=== PATIENT | female | born 1955 | race Caucasian/White ===

== ENCOUNTER 2020-07-10 15:07 | Emergency (ER) | payer MEDICAID, OTHER, SELFPAY ==
[2020-07-10] VITALS (7 sets, daily range): BP systolic 116–157; BP diastolic 58–75; PULSE 87–97; RESP 18–20; TEMP 37.6; O2SAT 94–99
--- NOTE | ~2020-07-10 | CT_ITS ---
EXAMINATION: CTA chest PE protocol DATE: 07/10/2020 16:38 INDICATION: Chest pain. Elevated d-dimer. TECHNIQUE: Computed tomography (CT) pulmonary angiogram of the chest was performed with 100 mL Omnipa que-350 intravenous contrast. Additional 3D reconstructions utilizing coronal maximum intensity proje ction (MIP) were performed. Automated exposure control and iterative reconstruction technique were em ployed. The dose-length product was 384.39 mGy-cm. COMPARISON: None FINDINGS: Excellent contrast opacification of the pulmonary arteries. There is moderate streak artifact from de nse contrast in the duplicated left sided superior vena cava and right atrium. Mild scattered respira tory motion artifact. Node definitive pulmonary embolism. There are multiple bilateral patchy groundg lass opacities throughout both lungs suspicious for pneumonia particularly COVID pneumonia. No pleura l effusion. Heart size is normal. No pericardial effusion. Thoracic aorta is normal in caliber with n o dissection. No pathologically enlarged thoracic lymphadenopathy. Visualized upper abdomen is unrema rkable. There are bridging osteophytes at multiple levels in the spine, consistent with diffuse idiop athic skeletal hyperostosis (DISH). IMPRESSION: 1. No pulmonary embolism. 2. Multiple scattered patchy airspace opacities throughout both lungs concerning for pneumonia partic ularly COVID pneumonia. 3. 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 Reviewed, dictated and finalized at location A. IMPRESSION: 1. No pulmonary embolism. 2. Multiple scattered patchy airspace opacities throughout both lungs concernin g for pneumonia particularly COVID pneumonia. 3. 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
--- NOTE | ~2020-07-10 | XR_ITS ---
EXAMINATION: XR chest 1V portable DATE: 07/10/2020 16:18 INDICATION: One week of cough and weakness TECHNIQUE: frontal view of the chest was obtained. COMPARISON: None FINDINGS: Minimal streaky left basilar atelectasis. No pulmonary edema, pleural effusion or pneumothorax. The c ardiomediastinal silhouette is normal. Moderate thoracic spondylosis. IMPRESSION: 1. Minimal left basilar atelectasis. Reviewed, dictated and finalized at location A.
--- NOTE | 2020-07-10 15:33 | ECG_ITS ---
Measurements Intervals [place] Rate: 89 P: -6 VT: 137 QRS: 48 QRSD: 82 T: 68 QT: 339 QTc: 415 Interpretive Statements SINUS RHYTHM BORDERLINE R WAVE PROGRESSION, ANTERIOR LEADS BASELINE ARTIFACT- II, III BORDERLINE ECG Electronically Signed On 07-10-2020 17:15:24 CDT by Tree Johnson D.O.
--- NOTE | 2020-07-10 15:48 | ED.URI ---
HPI - URI/Sore Throat General Chief Complaint: Upper Respiratory Infection Stated Complaint: cough x 1 week Time Seen by Provider: 07/10/20 15:11 Source: patient, RN notes reviewed and old records reviewed Mode of arrival: ambulatory Limitations: no limitations History of Present Illness HPI Narrative: This is a 64 year old female who presents for evaluation of weakness and cough for 1 week. She developed flu like symptoms 1 week ago. She reports a family member had flu symptoms but they were able to get over it in a couple days. She reports general fatigue and weakness. She states she had to call EMS on Sunday because she felt like she was going to pass out. She declined transportation to ER after EMS performed an EKG. She reports she only has upper chest pain if she coughs. She denies sob, vomiting, abdominal pain. She reports nausea and diarrhea. Her last episode of diarrhea was yesterday. Denies heart disease. Related Data Home Medications Medication Instructions Recorded Confirmed levothyroxine 125 mcg PO DAILY 07/10/20 07/10/20 sitagliptin [Januvia] 300 mg PO DAILY 07/10/20 07/10/20 Allergies Allergy/AdvReac Type Severity Reaction Status Date / Time Sulfa (Sulfonamide AdvReac Unknown Other Verified 07/10/20 15:16 Antibiotics) Review of Systems Review of Systems: All systems reviewed & are unremarkable except as noted in HPI and below Constitutional: Constitutional: Denies chills, Reports fatigue, Denies fever(s) and Reports weakness Cardiovascular: Cardiovascular: Denies rapid heart rate Respiratory: Respiratory: Reports cough and Denies dyspnea Gastrointestinal: Gastrointestinal: Denies abdominal pain, Reports diarrhea, Reports nausea and Denies vomiting Neurologic: Reports dizziness and Denies headache(s) Endocrine: Endocrine: Reports fatigue and Reports polydipsia [facility] Past Medical History Medical History (Updated 07/12/20 @ 11:01 by Daisy Frost MD) Diabetes mellitus Hypothyroid Surgical History Surgical History (Updated 07/10/20 @ 15:51 by Daisy Frost MD) H/O section Social History Social History (Updated 07/10/20 @ 15:51 by Daisy Frost MD) Smoking status: Never smoker Exam Const: General: no acute distress and alert Orientation/consciousness: patient oriented x3 HENMT: Head: normocephalic and atraumatic Face and sinus: face symmetric Throat: posterior oropharynx normal, tonsils normal and uvula midline Eyes: Pupils: Equal, round and reactive pupils present EOM: EOMs intact bilaterally Chest: Chest palpation & inspection: normal inspection of the chest Resp: Effort & Inspection: normal respiratory effort and no retractions Auscultation: clear to auscultation bilaterally Cardio: Rate: regular rate Rhythm: regular rhythm Heart sounds: Murmur heart sound present systolic harsh GI: GI Palp: Yes Soft to palpation, No Tenderness to palpation present (GI) and No Guarding due to palpation present (GI) Auscultation: normal bowel sounds Neuro: General: patient oriented x3, moves all extremities, no focal motor deficits and CN's II-XI intact bilaterally Cranial nerves: Yes Nystagmus not present Speech: normal speech Extrem: General: normal to inspection Psych: Mental Status: mental status grossly normal Affect: normal affect Course Reevaluation(s) Reevaluation #1: Patient is currently being hydrated. It appears patient likely has covid. She has been swabbed. She has been given dose of rocephin. I discussed with patient discharge plan. She has no oxygen requirement and vitals are stable. Her oxygen saturation maintained at 95% during ambulation to bathroom. I told her to obtain pulse oximeter at home to monitor for saturation below 90%. She understands quarantine. Date: 07/10/20 Time: 19:09 Vital Signs Vital signs: Vital Signs Temperature 99.7 F H 07/10/20 15:11 Pulse Rate 91 07/10/20 15:11 Respiratory
[2020-07-10 15:50] LABS: Basophils Percent Auto 0.2 % (0.2-1.2); Eosinophils Percent Auto 0.2 % (0-4.4); Hematocrit 42.6 % (37.0-47.0); Hemoglobin 13.9 g/dL (12.0-15.0); Immature Granulocyte Absolute 0.02 K/mm3 (0.00-0.031); Immature Granulocyte Percent A 0.5 % (0-0.5); Lymphocytes Absolute Auto 1.31 K/mm3 (0.9-3.2); Lymphocytes Percent Auto 31.3 % (18.3-44.2); Mean Corpuscular HGB Conc 32.6 g/dl (32-36); Mean Corpuscular Hemoglobin 29.3 pg (26-34); Mean Corpuscular Volume 89.9 fl (80-100); Monocytes Absolute Auto 0.4 K/mm3 (0.1-0.6); Monocytes Percent Auto 9.8 % (2.6-8.5); Neutrophils Absolute Auto 2.4 K/mm3 (1.3-6.7); Platelet Count Result 173 k/mm3 (150-375); Red Blood Count 4.74 M/mm3 (4.2-5.4); Red Cell Distribution Width 12.5 % (11.5-14.5); White Blood Count 4.2 K/mm3 (4.5-10.0)
[2020-07-10 16:00] LABS: Alanine Aminotransferase 40 U/L (4-35); Albumin Level 3.9 g/dL (3.5-5.1); Alkaline Phosphatase 70 U/L (38-126); Anion Gap 7 mmol/L (8-16); Aspartate Amino Transferase 56 U/L (14-36); Bilirubin,Total 0.4 mg/dL (0.2-1.3); Blood Urea Nitrogen 5 mg/dL (7-17); Calcium 8.6 mg/dL (8.4-10.2); Carbon Dioxide 32 mmol/L (22-30); Chloride 96 mmol/L (98-107); Estimated CRCL calculation 80 ml/min; Estimated Glomerular Filt Rate > 60; Glucose 248 mg/dL (65-105); INR 0.9; Magnesium 1.8 mg/dL (1.6-2.3); Potassium 4.1 mmol/L (3.4-5.0); Prothrombin Time 12.3 Seconds (11.1-14.7); Sodium 135 mmol/L (137-145)
[2020-07-10 16:00] LABS: Alveolar/Arterial O2 Gradient 36.3 mmHg; Base Excess ABG 0.5 mEq/l (+/-2.0); Carboxyhemoglobin 0.6 % THb (0-2.0); Fractional Inspired Oxygen 21 %; HCO3 ABG 24.1 mEq/l (22.0-26.0); Methemoglobin ABG 0.1 %THb (0-1.5); Oxygen Content ABG 18.2 %vol (16.0-22.0); Oxyhemoglobin 93.8 % THb (90.0-100.0); PCO2 ABG 35.7 mmHg (35.0-45.0); PO2 ABG 70.7 mmHg (80.0-100.0); PO2 FiO2 Ratio Arterial Blood 3.37 %; Reduced Hemoglobin 5.5 %THb (0-5.0); Total Hemoglobin 13.8 g/dL (12.0-18.0); pH ABG 7.448 (7.350-7.450)
[2020-07-10 16:01] LABS: Partial Thromboplastin Time 29.8 SECONDS (22.3-36.8)
[2020-07-10 16:02] LABS: Device ROOM AIR; Modified Allen's Test Pass; Site Drawn LEFT RADIAL
[2020-07-10 16:10] LABS: NT Pro B Type Natriuretic Pept 60 pg/mL (5-100); Troponin I < 0.012 ng/mL (0.000-0.034)
[2020-07-10 16:23] LABS: Lactic Acid Reflex 2.8 mmol/L (0.7-2.1)
[2020-07-10] MEDS: LACTATED RINGERS 1,000 ML 999 ML IV CONT ×2 (16:50→16:51)
[2020-07-10 16:56] LABS: Add Urine Microscopic? YES; Appearance Urine Cloudy (Clear); Bacteria Urine Trace /hpf; Bilirubin Urine Negative (Negative); Color Urine Yellow (Yellow); Glucose Urine UA 1+ mg/dL (Negative); Ketones Urine Negative (Negative); Leukocyte Esterase Ur 3+ LEU/UL (Negative); Mucus Urine Rare /lpf; Nitrate Urine Negative (Negative); Protein Urine Negative (Negative); RBC Urine 21-50 /hpf (0-2); Specific Grav Ur 1.006 (1.001-1.035); Squamous Epithelial Cell Urine Many /hpf (Few); Urobilinogen Urine Negative mg/dL (<2.0); WBC Urine 51-75 /hpf
[2020-07-10 16:58] LABS: Blood Urine Negative (Negative)
[2020-07-10 19:13] LABS: Reflex Lactic Acid Yes or No Add Lactic
[2020-07-10] MEDS: AZITHROMYCIN 250 MG TABLET 500 MG PO (19:26)
[2020-07-10 19:53] LABS: Lactic Acid 1.7 mmol/L (0.7-2.1)
[2020-07-12 13:55] LABS: SARS-CoV-2 RNA PCR Positive
== END 2020-07-10 21:40 | disposition home or self-care (01) ==
PROVIDERS: Emergency Provider General Practice; PCP Physician Assistant
DX: U07.1 COVID-19 (principal); J12.82 Pneumonia due to coronavirus disease 2019; N39.0 Urinary tract infection, site not specified; E11.9 Type 2 diabetes mellitus without complications; E03.9 Hypothyroidism, unspecified; R94.31 Abnormal electrocardiogram [ECG] [EKG]; Z79.84 Long term (current) use of oral hypoglycemic drugs; R55 Syncope and collapse
CPT/HCPCS: 36415; 36600; 71045; 71275; 80048; 80076; 81001; 82375; 82805; 83050; 83605; 83735; 83880; 84484; 85025; 85380; 85610; 85730; 86140; 87040; 87086; 87088; 87804; 93005; 96361; 96365; 99284; A9270; C9803; J0696; J7120; Q9967; U0003; U0005

== ENCOUNTER 2023-07-12 07:00 | Outpatient (NON) | payer MEDICARE, SELFPAY | END 2023-07-12 07:01 | disposition home or self-care (01) | PROVIDERS: Visit Provider Internal Medicine Gastroenterology | DX: R19.4 Change in bowel habit (principal); D12.5 Benign neoplasm of sigmoid colon | CPT/HCPCS: 88305 ==

== ENCOUNTER 2023-07-12 07:15 | Day surgery (SDC) | payer MEDICARE, SELFPAY ==
[2023-06-18 10:00] VITALS: BMI 34.9
[2023-06-25 12:50] VITALS: BMI 33.8
[2023-07-12 08:01] VITALS: BP 135/83; PULSE 88; RESP 18; TEMP 37.3; O2SAT 97
[2023-07-12] MEDS: LACTATED RINGERS 1,000 ML 150 ML IV CONT (08:04)
[2023-07-12 08:11] VITALS: BMI 33.4
[2023-07-12 08:16] LABS: Glucose Point of Care 165 mg/dl (65-105)
--- NOTE | 2023-07-12 08:18 | P.PNAN_ITS ---
Anes - Initial Pre Proc Eval Procedure: Operation Date: 07/12/23 09:00 Proposed Procedures p Diagnostic Colonoscopy - Pedro Ospina MD Date/Time: 07/12/23 08:18 Surgeon: Pedro Ospina MD Pre Op Diagnosis: Change in bowel habit. Patient Data Age: 67 Gender: F Height: 1.55 m Weight: 80.3 kg Last Vital Signs Temp 37.3 C 07/12/23 08:01 Pulse 88 07/12/23 08:01 Resp 18 07/12/23 08:01 BP 135/83 07/12/23 08:01 Pulse Ox 97 07/12/23 08:01 O2 Del Method Room Air 07/12/23 08:01 Allergies Allergy/AdvReac Type Severity Reaction Status Date / Time Sulfa (Sulfonamide AdvReac Unknown Other Verified 07/12/23 07:59 Antibiotics) Home Medications Medication Instructions Recorded Confirmed Type levothyroxine 125 mcg tablet 125 mcg PO DAILY 07/10/20 07/12/23 History sitagliptin phosphate 100 mg 100 mg PO DAILY 07/10/20 07/12/23 History tablet (Januvia) semaglutide 14 mg tablet (Rybelsus) 14 mg PO DAILY 04/19/23 07/12/23 History Laboratory Tests 07/12/23 08:13 POC Capillary Glucose 165 H mg/dl (65-105) Patient hx anesthesia problems: none Family hx anesthesia problems: none Results Review: All pre-operative results and documents have been reviewed as part of the pre- operative evaluation. [facility] Past Medical History Medical History (Updated 07/12/23 @ 08:18 by Oneal Oquendo MD) Diabetes mellitus Hypothyroid Obesity Surgical History Surgical History H/O section Social History Social History Smoking status: Never smoker Alcohol intake: never Substance use: never Substance use type: does not use Do You Feel Safe in your Home?: Yes Current Housing: Decline to Answer Concerned About Future Housing: Decline to Answer Difficulty Paying Gas/Electric Bills: Decline to Answer Difficulty Paying for Meds: Decline to Answer Currently Unemployed: Decline to Answer Education: Decline to Answer Difficulty w/ Childcare or Family Care: Decline to Answer Living arrangements: with family Additional living arrangements comments: Occupation/Education: occupation Gender identity (if verbalized by the patient): Female Sexual Orientation (if Verbalized by the Patient): Straight or Heterosexual Spiritual care concerns: No Anes - Eval Final PreProcedure Day of Procedure 07/12/23 08:18 Patient weight: obese Heart: regular rate and rhythm Lungs: clear to auscultation Airway: Mallampati scale class II Neurological: alert and oriented Last oral intake: >/= 8 hours ASA classification: III Emergent: no Anesthetic plan: proceed Anesthesia type and monitoring: general GIVS and standard monitoring Results Review: All pre-operative results and documents have been reviewed as part of the pre- operative evaluation. Informed Consent: The patient's anesthetic plan and its attendant risks and benefits were discussed with the patient/family/POA. Questions were solicited and answers provided to the satisfaction of the patient/family/POA.
--- NOTE | 2023-07-12 08:32 | PM.HPGS ---
History of Present Illness History of Present Illness Consent: Risks, benefits, and alternatives have been discussed and questions answered. Patient agrees to proceed with procedure. Chief complaint: Bright red blood per rectum Narrative: Mayra James is a 67 year old female referred for colonoscopy. Patient reports 1 episode where she had mucus and small amount of blood that soiled her bed garments. Patient states she has a tendency to strain with bowel movements, this is improved on taking magnesium supplements. Patient presents today for colonoscopy. She denies any family history of colon or rectal disease. Her weight has remained stable. She denies abdominal pain. Review of Systems Review of Systems: All systems reviewed & are unremarkable except as noted in HPI and below PMFSH Past Medical History Medical History (Updated 07/12/23 @ 08:34 by Pedro Ospina MD) Diabetes mellitus Hypothyroid Obesity Surgical History Surgical History H/O section Social History Social History Smoking status: Never smoker Alcohol intake: never Substance use: never Substance use type: does not use Do You Feel Safe in your Home?: Yes Current Housing: Decline to Answer Concerned About Future Housing: Decline to Answer Difficulty Paying Gas/Electric Bills: Decline to Answer Difficulty Paying for Meds: Decline to Answer Currently Unemployed: Decline to Answer Education: Decline to Answer Difficulty w/ Childcare or Family Care: Decline to Answer Living arrangements: with family Additional living arrangements comments: Occupation/Education: occupation Gender identity (if verbalized by the patient): Female Sexual Orientation (if Verbalized by the Patient): Straight or Heterosexual Spiritual care concerns: No Meds Home Medications and Allergies Home Medications Medication Instructions Recorded Confirmed Type levothyroxine 125 mcg tablet 125 mcg PO DAILY 07/10/20 07/12/23 History sitagliptin phosphate 100 mg 100 mg PO DAILY 07/10/20 07/12/23 History tablet (Januvia) semaglutide 14 mg tablet (Rybelsus) 14 mg PO DAILY 04/19/23 07/12/23 History Allergies Allergy/AdvReac Type Severity Reaction Status Date / Time Sulfa (Sulfonamide AdvReac Unknown Other Verified 07/12/23 07:59 Antibiotics) Vital Signs Vital Signs - 24 hr 07/12/23 08:01 Temperature 99.1 F Pulse Rate 88 Respiratory Rate 18 Blood Pressure 135/83 Pulse Oximetry 97 Oxygen Delivery Room Air Exam Narrative: Physical exam reveals patient to be alert. Vital signs stable. HEENT exam is unremarkable. Patient is anicteric. Lungs are clear to auscultation and percussion. Heart is without murmur or extra sounds. Abdomen bowel sounds are present soft nontender with no organomegaly. Digital external rectal exam is normal. Assessment and Plan Assessment and plan (1) BRBPR (bright red blood per rectum): Code(s): K62.5 - Hemorrhage of anus and rectum Status: Acute Assessment and Plan: Patient reports 1 episode with bright red blood per rectum this does not typically occur with bowel movements but was noted so healing her bed garments on 1 occasion. She also had mucus at that time. Colonoscopy recommended to evaluate further recommendations may be given after endoscopy.
[2023-07-12 09:00] VITALS: BP 113/83; PULSE 78; RESP 12; O2SAT 98
[2023-07-12 09:10] VITALS: BP 120/69; PULSE 78; RESP 12; O2SAT 99
[2023-07-12 09:20] VITALS: BP 121/69; PULSE 81; RESP 16; O2SAT 98
--- NOTE | 2023-07-12 09:27 | WPDANESPN ---
Anes - Prog Note Post-Op Date/Time: 07/12/23 09:27 Cardiovascular status: normal Respiratory status: normal Airway patency: baseline Mental status: baseline Post-Op hydration status: normal Vital Signs: Last Vital Signs Temp 37.3 C 07/12/23 08:01 Pulse 81 07/12/23 09:20 Resp 16 07/12/23 09:20 BP 121/69 07/12/23 09:20 Pulse Ox 98 07/12/23 09:20 O2 Del Method Room Air 07/12/23 09:20 Pain Score (VAS): 0/10 I/O: Intake & Output 07/11/23 07/12/23 07/12/23 23:59 07:59 15:59 Intake Total 200 Balance 200 07/12/23 08:13 POC Capillary Glucose 165 H Patient Feedback: Patient satisfied with anesthetic care.
== END 2023-07-12 09:32 | disposition home or self-care (01) ==
PROVIDERS: Visit Provider Internal Medicine Gastroenterology
PROC: 0DJD8ZZ Inspection of Lower Intestinal Tract, Via Natural or Artificial Opening Endoscopic (ICD-10-PCS; CPT 45378; principal; 2023-07-12 09:00)
DX: K62.5 Hemorrhage of anus and rectum (principal); D12.5 Benign neoplasm of sigmoid colon; K64.8 Other hemorrhoids
CPT/HCPCS: 45385

== ENCOUNTER 2024-02-06 08:57 | Outpatient (CLI) | payer MEDICARE, SELFPAY ==
--- NOTE | ~2024-02-06 | US_ITS ---
EXAMINATION: US renal BI DATE: 02/06/2024 09:46 INDICATION: Flank pain. TECHNIQUE: Multiple ultrasound grayscale images of the kidneys were obtained. COMPARISON: Chest CT 07/10/20 FINDINGS: The right kidney measures 10.8 x 4.4 x 6.0 cm. The left kidney measures 10.9 x 5.4 x 4.7 cm. The kidn eys demonstrate normal parenchymal echogenicity. There is no hydronephrosis. The bladder is normal. IMPRESSION: 1. Normal kidneys. No hydronephrosis. Reviewed, dictated and finalized at location A. [employer]
--- NOTE | ~2024-02-06 | US_ITS ---
RIGHT UPPER QUADRANT ABDOMINAL ULTRASOUND (Doppler ultrasound interrogation techniques used as needed for this exam.) Ordering provider: Sean Ordoñez, PA History: . RUQ pain . Comparison: None. FINDINGS: PANCREAS: Not well demonstrated. . PORTAL VEIN: Hepatopedal flow demonstrated. LIVER: Normal size and increased echotexture. No focal hepatic lesions or perihepatic fluid collectio ns are identified. BILIARY DUCTS: No intra or extrahepatic biliary dilation. Common bile duct measures 5 mm in diameter which is normal for patient's age. GALLBLADDER: Cholelithiasis. No sludge, gallbladder wall thickening or pericholecystic fluid. Wall th ickness is 0.13 cm. Negative sonographic Beard's sign. IVC: Normal. Aorta: Normal. FREE FLUID: None visualized within the upper abdomen. IMPRESSION: Fat infiltration of the liver. Cholelithiasis. Otherwise, normal right upper quadrant ultrasound. Reviewed, dictated and finalized at location A. [place] IMPRESSION: Fat infiltration of the liver. Cholelithiasis. Otherwise, normal right upper qu adrant ultrasound.
== END 2024-02-06 08:58 | disposition home or self-care (01) ==
PROVIDERS: PCP Physician Assistant; Visit Provider Physician Assistant
DX: K76.0 Fatty (change of) liver, not elsewhere classified (principal); K80.20 Calculus of gallbladder without cholecystitis without obstruction
CPT/HCPCS: 76705; 76775